=== PATIENT | female | born 1965 | race Caucasian/White ===

== ENCOUNTER → 2016-10-28 | Outpatient (CLI) | payer MEDICARE, OTHER ==
[~2016-10-28] MED LIST: ADVI200T PO; ASPI81TA85 PO; CETI10TA PO; FLEXERIL PO; MILKSUS PO; ROXI1TAB2 PO; VALI5TAB PO; ZYRT10CA PO
--- NOTE | 2016-10-28 14:29 | REP ---
Clinical: Sprain . Technique: AP, lateral, bilateral oblique views right ankle . Findings: No acute fracture or dislocation. Skeletal structures and joint spaces are intact and normal. Ankle mortise appears stable. No subcutaneous emphysema or radiodense foreign body. Impression: Normal right ankle radiograph series. Signed by Stuart Crabtree MD 10/28/2016 09:45 A
--- NOTE | 2016-10-28 14:29 | REP ---
Clinical: Trauma. Sprain. Technique: AP, lateral, bilateral oblique views. Findings: The osseous structures and joint spaces are intact and normal. There is no evidence for acute fracture or dislocation. Surrounding soft tissues are unremarkable. No subcutaneous emphysema or radiodense foreign body. Impression: No acute fracture or dislocation. Signed by Stuart Crabtree MD 10/28/2016 09:45 A
== END ==
LOC: M WUC 09:13
PROVIDERS: ATTEND Physician Assistant
DX: S93.421A Sprain of deltoid ligament of right ankle, initial encounter (principal); S93.601A Unspecified sprain of right foot, initial encounter; X58.XXXA Exposure to other specified factors, initial encounter; Y92.89 Other specified places as the place of occurrence of the external cause; Y93.89 Activity, other specified; Y99.8 Other external cause status

== ENCOUNTER → 2016-11-13 | Outpatient (REF) | payer MEDICARE, OTHER ==
[2016-11-16 00:06] LABS: Lyme Disease IgG/IgM Antibodie <0.91 ISR (0.00-0.90); Lyme Disease IgM Ab Quantitati <0.80 index (0.00-0.79)
== END ==
LOC: M LAB REF 16:31
PROVIDERS: ATTEND Internal Medicine
DX: M25.50 Pain in unspecified joint (principal)

== ENCOUNTER → 2017-11-17 | Outpatient (REF) | payer MEDICARE, OTHER ==
[2017-11-17 18:54] LABS: C REACTIVE PROTEIN QUANTITATIV < 0.30 MG/DL (0.00-0.30)
== END ==
LOC: M LAB REF 17:05
DX: I89.0 Lymphedema, not elsewhere classified (principal)
CPT/HCPCS: 86140

== ENCOUNTER → 2018-12-14 | Outpatient (CLI) | payer MEDICARE, OTHER ==
[~2018-12-14] MED LIST changes: +MILK120011 PO; -MILKSUS PO
--- NOTE | 2018-12-14 17:56 | REP ---
RIGHT CLAVICLE, TWO VIEWS: Two views of the right clavicle are performed. There is no acute fracture or dislocation. The acromioclavicular joint appears unremarkable. IMPRESSION: Negative exam right clavicle. Electronically Signed by Naveen Giordano MD 12/15/2018 03:19 P
--- NOTE | 2018-12-14 17:57 | REP ---
RIGHT SHOULDER, THREE VIEWS: There is no evidence of an acute fracture, dislocation or intrinsic bone disease. IMPRESSION: No fracture or dislocation. Electronically Signed by Naveen Giordano MD 12/15/2018 03:19 P
== END ==
LOC: M WUC 15:00
PROVIDERS: ATTEND Physician Assistant
DX: M25.511 Pain in right shoulder (principal)

== ENCOUNTER → 2019-02-17 | Outpatient (REF) | payer MEDICARE, OTHER | LOC: M SFHCWAGY 13:11 | PROVIDERS: ATTEND Nurse Practitioner Women's Health | DX: R35.0 Frequency of micturition (principal); R82.90 Unspecified abnormal findings in urine; R10.30 Lower abdominal pain, unspecified | CPT/HCPCS: 81002; 87088; 87186; G0463 ==

== ENCOUNTER → 2019-09-15 | Outpatient (CLI) | payer MEDICARE, OTHER ==
[2019-09-15 10:38] LABS: BASO % 0.8 % (0.0-1.0); EOS # 0.1 10^3/uL (0.0-0.5); EOS % 1.4 % (0.0-3.0); HEMATOCRIT 43.4 % (36.0-47.0); HEMOGLOBIN 14.7 g/dl (12.0-15.5); LYMPH # 1.6 10^3/uL (1.5-5.0); LYMPH % 32.6 % (24.0-44.0); MEAN CORPUSCULAR HEMOGLOBIN 30.3 pg (27.0-33.0); MEAN CORPUSCULAR HGB CONC 33.9 g/dl (32.0-36.5); MEAN CORPUSCULAR VOLUME 89.5 fl (80.0-96.0); MONO # 0.5 10^3/uL (0.0-0.8); MONO % 9.1 % (0.0-5.0); NEUTROPHILS # 2.8 10^3/uL (1.5-8.5); NEUTROPHILS % 56.1 % (36.0-66.0); PLATELET COUNT, AUTOMATED 232 10^3/uL (150-450); RED BLOOD COUNT 4.85 10^6/uL (4.00-5.40)
[2019-09-15 11:13] LABS: ERYTHROCYTE SEDIMENTATION RATE 16 mm/hr (0-30)
[2019-09-17 00:07] LABS: ANA (HEP2) Negative (.)
== END ==
LOC: M LAB 09:44
PROVIDERS: ATTEND Allergy & Immunology
DX: R51 Headache (principal); R53.81 Other malaise

== ENCOUNTER → 2019-10-09 | Outpatient (REF) | payer MEDICARE, OTHER | LOC: M LAB REF 09:49 | PROVIDERS: ATTEND Physician Assistant | DX: N39.0 Urinary tract infection, site not specified (principal) ==

== ENCOUNTER 2019-10-27 22:11 | Emergency (ER) | payer MEDICARE, OTHER ==
[~2019-10-27] VITALS: Ht 167.6 cm; Wt 81.3 kg
[2019-10-27 22:12] VITALS: BP 141/67
[2019-10-28] MEDS ORDERED: LIDOCAINE 4% CREAM 5GM (LMX4) TOP ONE (01:30)
== END 2019-10-28 01:53 | disposition home or self-care (01) ==
LOC: M ED 22:11
DX: Z46.89 Encounter for fitting and adjustment of other specified devices (principal); Z79.899 Other long term (current) drug therapy; Z79.82 Long term (current) use of aspirin

== ENCOUNTER → 2020-01-17 | Outpatient (REF) | payer MEDICARE, OTHER | LOC: M WUC 13:11 | PROVIDERS: ATTEND Physician Assistant | DX: J02.9 Acute pharyngitis, unspecified (principal); Z11.59 Encounter for screening for other viral diseases | CPT/HCPCS: 87081; 87502; U0003 ==

== ENCOUNTER → 2020-11-13 | Outpatient (REF) | payer MEDICARE, OTHER ==
[~2020-11-13] MED LIST changes: -ASPI81TA85 PO; +ASPI81TA86 PO
[2020-11-13 17:18] LABS: C REACTIVE PROTEIN QUANTITATIV < 0.30 MG/DL (0.00-0.30); RHEUMATOID FACTOR QUANT < 10.0 IU/ML (<15.0)
== END ==
LOC: M LAB REF 16:09
PROVIDERS: ATTEND Internal Medicine
DX: M25.50 Pain in unspecified joint (principal)

== ENCOUNTER → 2021-11-25 | Outpatient (REF) | payer MEDICARE, OTHER ==
[2021-11-25 13:46] LABS: C REACTIVE PROTEIN QUANTITATIV < 0.30 MG/DL (0.00-0.30)
[2021-11-25 14:05] LABS: HEPATITIS C VIRUS ABY INDEX 0.2 INDEX (<0.8)
== END ==
LOC: M LAB REF 12:03
PROVIDERS: ATTEND Internal Medicine
DX: M06.9 Rheumatoid arthritis, unspecified (principal); L81.8 Other specified disorders of pigmentation

== ENCOUNTER → 2022-01-23 | Outpatient (CLI) | payer MEDICARE, OTHER | LOC: M RAD 15:19 | PROVIDERS: ATTEND Nurse Practitioner Family | DX: K59.00 Constipation, unspecified (principal) ==

== ENCOUNTER → 2022-09-17 | Outpatient (CLI) | payer MEDICARE, OTHER | LOC: M LAB 14:57 | PROVIDERS: ATTEND Internal Medicine Gastroenterology | DX: K59.00 Constipation, unspecified (principal) ==

== ENCOUNTER → 2022-10-06 | Outpatient (REF) | payer MEDICARE, OTHER | LOC: M LAB REF 12:02 | PROVIDERS: ATTEND Internal Medicine | DX: R21 Rash and other nonspecific skin eruption (principal); Z11.59 Encounter for screening for other viral diseases; R53.83 Other fatigue ==

== ENCOUNTER → 2022-11-25 | Outpatient (REF) | payer MEDICARE, OTHER | LOC: M LAB REF 12:19 | PROVIDERS: ATTEND Internal Medicine | DX: M06.9 Rheumatoid arthritis, unspecified (principal) ==

== ENCOUNTER → 2023-04-02 | Outpatient (REF) | payer MEDICARE, OTHER | LOC: M LAB REF 11:27 | PROVIDERS: ATTEND Internal Medicine | DX: M06.9 Rheumatoid arthritis, unspecified (principal) ==

== ENCOUNTER → 2023-05-01 | Outpatient (REF) | payer MEDICARE, OTHER | LOC: M WUC 18:40 | PROVIDERS: ATTEND Physician Assistant | DX: R30.0 Dysuria (principal) ==

== ENCOUNTER → 2023-05-04 | Outpatient (REF) | payer MEDICARE, OTHER | LOC: M LAB REF 16:23 | PROVIDERS: ATTEND Nurse Practitioner Family | DX: R30.0 Dysuria (principal) ==

== ENCOUNTER → 2024-06-21 | Outpatient (REF) | payer MEDICARE, OTHER | LOC: M LAB REF 12:01 | PROVIDERS: ATTEND Internal Medicine | DX: M06.9 Rheumatoid arthritis, unspecified (principal) ==

== ENCOUNTER → 2024-07-28 | Outpatient (CLI) | payer MEDICARE, OTHER | LOC: M RAD 12:58 | PROVIDERS: ATTEND Student in an Organized Health Care Education/Training Program | DX: R22.41 Localized swelling, mass and lump, right lower limb (principal) ==

== ENCOUNTER → 2024-10-12 | Outpatient (CLI) | payer MEDICARE, OTHER | LOC: M WUC 11:42 | PROVIDERS: ATTEND Nurse Practitioner Family | DX: R06.02 Shortness of breath (principal) ==